=== PATIENT | male | born 1980 | race African-American/Black ===

== ENCOUNTER → 2017-04-18 | Day surgery (SDC) | payer BC ==
[~2017-04-18] MED LIST: CLON1TAB3 PO; IV RINGERS,LACTATED 1000ML 1,000 ML IV SCH; LIDOCAINE 1% PF 2 ML VIAL. ID PRN; LIDOCAINE 2% PF Vial for OR 5 ML VIAL. ONE; METH10TA2 PO; MIDAZOLAM HCL/PF 2 MG/2 ML VIAL. IV PRN; PROPOFOL 40 ML IV ONE; RIVA1TAB PO; VERA240C2 PO; VORT5TAB PO; fentaNYL PF VIAL 100 MCG/2 ML VIAL IV PRN
[2017-04-18 10:10] VITALS: BP 159/96
--- NOTE | 2017-04-19 13:44 | PATHOLOGY ---
PATHOLOGY REPORT * * * * * * * * FINAL DIAGNOSIS: Colon biopsies, sigmoid colon polyps x 3: - Hyperplastic polyps, with mild chronic inflammation. COMMENT: There are no adenomatous changes or evidence of malignancy. (JPM:pit; 04/19/2017) REPORT ELECTRONICALLY SIGNED BY: Karel Bob M.D. DATE/TIME: 04/19/2017 13:41 * * * * * * * * GROSS PATHOLOGY: Received in formalin labeled "Helder Vásquez, sigmoid colon polyp BX 3," are 3 segments of araiza soft tissue measuring 1.2 x 0.2 x 0.3 cm in aggregate dimensions and ranging from 0.3 to 0.4 cm in maximum dimension. The specimen is submitted entirely in cassette A1. (TSD; 04/18/2017) INITIAL CPT CODE(S): A; 94496 Professional services performed [place] [address] Technical services performed by [facility] at [address] [place] [address], [facility] [address], [place] [address]. SPECIMEN(S) RECEIVED: A.Sigmoid colon polyp biopsy x3 CLINICAL HISTORY: Rectal bleeding PATIENT: TIMOTHY VÁSQUEZPAWEL Ocasio /AGE: 801/15/1980 (Age: 37) PATIENT #: [id number] ALT CASE #: SPECIMEN COLLECTION DATE: 04/18/2017 SPECIMEN RECEIVED DATE: 04/18/2017 [facility] - [address] [place] [address] - PHONE: [phone] * * * END OF REPORT * * *
--- NOTE | 2017-04-20 14:37 | HP ---
ADMIT DATE: HISTORY OF PRESENT ILLNESS: The patient is referred to me because of blood in the rectum. Apparently, he has had hemorrhoids for some time and has recently had blood in the stool. He also has a run down in his leg sometimes. He is taking Xarelto. This he takes because of atrial fibrillation. The patient otherwise is doing relatively well. He has recently had colonoscopy done, which showed some benign polyps that were removed, but no evidence of tumor, diverticulosis or other diseases. They did see the hemorrhoids PAST MEDICAL HISTORY: Shows normal childhood diseases. He does have hypertension and also has had atrial fibrillation, for which he takes medicine. He also takes Xarelto for that and has been a drug addict and does take methadone. The patient otherwise has no allergies and has never had significant surgery, only some boils in the hands. FAMILY HISTORY: No family history of hemorrhoids or other significant diseases. SOCIAL HISTORY: He is , has 4 children, does not drink alcohol or use drugs at this time. He does smoke a pack of cigarettes per day. PHYSICAL EXAMINATION: GENERAL: Shows an alert male in no acute distress. HEAD, EYES, EARS, NOSE AND THROAT: Grossly normal. ABDOMEN: Soft. LUNGS: Clear bilaterally to auscultation. HEART: Had no murmurs, heaves, friction rubs or thrills and had a regular rate of 72 beats per minute. There was no atrial fibrillation at this point. RECTAL: Showed mostly on the left, hemorrhoid and hemorrhoid tags. He has internal and external hemorrhoids. EXTREMITIES: Grossly normal. GENITOURINARY: Male genitalia normal. IMPRESSION: 1. Atria fibrillation. 2. Addiction. 3. Hypertension. 4. Hemorrhoids. GABY VILLAREAL MD DR: INDIRA/sajan JOB#: [id number] / [id number]
== END | disposition home or self-care (01) ==
LOC: ENDOS 08:00
PROVIDERS: ATTEND Internal Medicine Gastroenterology
DX: K63.5 Polyp of colon (principal); K64.1 Second degree hemorrhoids; I48.91 Unspecified atrial fibrillation; I10 Essential (primary) hypertension; K21.9 Gastro-esophageal reflux disease without esophagitis; F32.9 Major depressive disorder, single episode, unspecified; F41.9 Anxiety disorder, unspecified; F17.200 Nicotine dependence, unspecified, uncomplicated; Z86.718 Personal history of other venous thrombosis and embolism; Z72.0 Tobacco use
CPT/HCPCS: 45385; 88305; J2704; J2001

== ENCOUNTER → 2017-11-15 | Day surgery (SDC) | payer BC ==
[~2017-11-15] MED LIST changes: +BUPIVACAINE 0.5% 50 ML VIAL.; -CLON1TAB3 PO; +DEXAMETHASONE SOD PHOS 20 MG/5 ML VIAL.; +DEXAMETHASONE SOD PHOS 4 MG/ML VIAL; +IV RINGERS,LACTATED 1000ML 1,000 ML IV; -IV RINGERS,LACTATED 1000ML 1,000 ML IV SCH; +LIDOCAINE 1% PF 2 ML VIAL. ID; -LIDOCAINE 1% PF 2 ML VIAL. ID PRN; +LIDOCAINE 1% PF 30 ML VIAL.; +LIDOCAINE 2% PF Vial for OR 5 ML VIAL.; -LIDOCAINE 2% PF Vial for OR 5 ML VIAL. ONE; -METH10TA2 PO; +MIDAZOLAM HCL/PF 2 MG/2 ML VIAL.; -MIDAZOLAM HCL/PF 2 MG/2 ML VIAL. IV PRN; +MORPHINE SULFATE 2 MG/ML DISP.SYRIN. IV; +ONDANSETRON PF 4 MG/2 ML VIAL.; +POVIDONE-IODINE 10% TOPICAL OINTMENT 28GM TUBE. TP; +PROCHLORPERAZINE 10 MG/2 ML VIAL. IV; +PROPOFOL 20 ML IV; -PROPOFOL 40 ML IV ONE; -RIVA1TAB PO; -VERA240C2 PO; -VORT5TAB PO; +ceFAZolin 2GM PREMIX 2 GM/50 ML BAG IV; +fentaNYL PF VIAL 100 MCG/2 ML VIAL; +fentaNYL PF VIAL 100 MCG/2 ML VIAL IV; -fentaNYL PF VIAL 100 MCG/2 ML VIAL IV PRN
[2017-11-15 10:34] LABS: ADD MAN DIFF? NO
[2017-11-15 10:37] LABS: BASO # 0.1 x10^3/uL (0.0-0.2); BASO % 1 % (0-3); EOS # 0.2 x10^3/uL (0.0-0.7); EOS % 3 % (0-3); HEMATOCRIT 48.1 % (39.0-53.0); HEMOGLOBIN 16.4 g/dL (13.0-17.5); LYMPH # 2.2 x10^3/uL (1.0-4.8); LYMPH % 30 % (24-48); MEAN CORPUSCULAR HEMOGLOBIN 29 pg (25-35); MEAN CORPUSCULAR HGB CONC 34 g/dL (31-37); MEAN CORPUSCULAR VOLUME 84 fL (79-100); MONO # 0.5 x10^3/uL (0.0-1.1); MONO % 7 % (0-9); NEUT # 4.5 x10^3uL (1.8-7.7); NEUT % 60 % (31-73); PLATELET COUNT 252 x10^3/uL (140-400); RED BLOOD COUNT 5.75 x10^6/uL (4.30-5.70); RED CELL DISTRIBUTION WIDTH 13.5 % (11.5-14.5); WHITE BLOOD COUNT 7.5 x10^3/uL (4.0-11.0)
[2017-11-15 10:46] LABS: ANION GAP 7 (6-14); BLOOD UREA NITROGEN 16 mg/dL (8-26); CALCIUM 9.4 mg/dL (8.5-10.1); CARBON DIOXIDE 29 mmol/L (21-32); CHLORIDE 103 mmol/L (98-107); CREATININE 0.8 mg/dL (0.7-1.3); GFR 131.6; GLUCOSE 84 mg/dL (70-99); POTASSIUM 3.7 mmol/L (3.5-5.1); SODIUM 139 mmol/L (136-145)
[2017-11-15] MEDS: IV RINGERS,LACTATED 1000ML 1,000 ML IV (11:07)
[2017-11-15 13:15] LABS: POC GLUCOSE 76 mg/dL (70-99)
[2017-11-15] MEDS: fentaNYL PF VIAL 100 MCG/2 ML VIAL IV ×2 (13:31→13:49)
== END | disposition home or self-care (01) ==
LOC: SURG 09:52
DX: Z18.10 Retained metal fragments, unspecified (principal); I10 Essential (primary) hypertension; E11.9 Type 2 diabetes mellitus without complications; E78.5 Hyperlipidemia, unspecified; Z86.711 Personal history of pulmonary embolism; Z82.49 Family history of ischemic heart disease and other diseases of the circulatory system; I48.91 Unspecified atrial fibrillation; Z86.718 Personal history of other venous thrombosis and embolism; K21.9 Gastro-esophageal reflux disease without esophagitis; F41.9 Anxiety disorder, unspecified; F32.9 Major depressive disorder, single episode, unspecified; F17.200 Nicotine dependence, unspecified, uncomplicated; Z98.890 Other specified postprocedural states; Z79.84 Long term (current) use of oral hypoglycemic drugs
CPT/HCPCS: 28192; 36415; 73630; 80048; 82962; 85025; J0690; J1100; J2001; J2250; J2405; J2704; J3010; J3490